=== PATIENT | male | born 1970 | race Caucasian/White ===

== ENCOUNTER 2016-08-06 17:46 | Inpatient (IN) | payer OTHER ==
[~2016-08-06] VITALS: Ht 188 cm; Wt 142.1 kg
[~2016-08-06 17:46] MED LIST: ADULT LOW DOSE81 M1 PO; ALEVE220 M2 PO; ATACAND32 MG PO; CIPRO500 MG PO; CRESTOR20 MG PO; DAILY VITAMIN1 EAC8 PO; FISH OIL500 MG PO; GLIMEPIRIDE4 MG PO; METFORMIN HCL1000 MG PO; ONE TOUCH VERI1 EACH MC; PRILOSEC40 MG PO; TAMIFLU75 MG PO; VICTOZA 2-0.6 MG/0.1 SC
[2016-08-06 18:25] LABS: HEMATOCRIT 48.5 % (38.0-50.0); MCH 29.5 PG (29.0-34.0); MCHC 35.1 G/DL (30.0-36.0); MCV 84.2 FL (86-99); MEAN PLAT.VOLUME 10.1 uM^3 (9.0-12.4); PLATELET COUNT 273 K/uL (156-360); RBC DIS.WIDTH-CV 12.6 % (11.8-14.6); RBC DIS.WIDTH-SD 38.5 % (39-53); RED BLOOD COUNT 5.76 M/uL (4.00-5.50); WHITE BLOOD COUNT 11.2 K/uL (4.1-10.2)
[2016-08-06 18:35] LABS: CHLORIDE 103 mEq/L (99-109); SODIUM 140 mEq/L (136-147)
[2016-08-06 18:37] LABS: GLUCOSE 156 mg/dL (70-99)
[2016-08-06 18:38] LABS: ANION GAP 11 MEQ/L (2-14)
[2016-08-06 18:41] LABS: ALKALINE PHOSPHATASE 42 IU/L (3-129); GFR ESTIMATE (CALCULATED) 35 mL/min/
[2016-08-06 18:42] LABS: UREA NITROGEN (BUN) 17 mg/dL (9-23)
[2016-08-06 18:44] LABS: LIPASE 34 U/L (1.0-51.0)
[2016-08-06 19:10] LABS: ADD MIUA? NO; BILIRUBIN NEGATIVE; BLOOD NEGATIVE; COLOR YELLOW ((YELLOW)); GLUCOSE (STRIP) NEGATIVE; KETONES NEGATIVE; LEUKOCYTES NEGATIVE; NITRITE NEGATIVE; PROTEIN (STRIP) NEGATIVE; SPECIFIC GRAVITY 1.014 (1.000-1.030); UCUL ADDED? NO; UROBILINOGEN 0.2 MG/DL (0.2-1.0)
[2016-08-06] MEDS ORDERED: CHLORDIAZEPOXI1 EACH PO (23:18)
[2016-08-06] MEDS ORDERED: TRULICITY1.5 MG/0.5 SC (23:19)
[2016-08-06] MEDS ORDERED: LEVEMIR FL100 UNIT/1 SC (23:19)
[2016-08-06] MEDS ORDERED: MOMETASONE FURO45 GM TP (23:21)
[2016-08-06 23:33] LABS: POINT-OF-CARE METER ID UU14100415
[2016-08-07 03:04] VITALS: BP 139/80
[2016-08-07 06:35] LABS: EOSINOPHIL (%) 0.4 % (0-5); HEMATOCRIT 43.3 % (38.0-50.0); IMMATURE GRANULOCYTE (%) 0.4 % (0.0-0.7); INSTRUMENT ABS NEUTROPHIL CT 8.5 K/uL; LYMPHOCYTE COUNT 1.7 K/uL (1.0-2.8); MCH 29.2 PG (29.0-34.0); MCHC 33.9 G/DL (30.0-36.0); MCV 85.9 FL (86-99); MEAN PLAT.VOLUME 9.9 uM^3 (9.0-12.4); MONOCYTE (%) 9.3 % (3-12); MONOCYTE COUNT 1.1 K/uL (0-0.8); NEUTROPHIL (%) 74.3 % (45-76); NEUTROPHIL COUNT 8.5 K/uL (1.8-6.4); PLATELET COUNT 240 K/uL (156-360); RED BLOOD COUNT 5.04 M/uL (4.00-5.50); WHITE BLOOD COUNT 11.4 K/uL (4.1-10.2)
[2016-08-07 07:00] LABS: ANION GAP 10 MEQ/L (2-14); CHLORIDE 102 MEQ/L (99-109); GFR ESTIMATE (CALCULATED) 39 mL/min/; GLUCOSE 145 mg/dL (70-99); POTASSIUM 4.8 MEQ/L (3.7-5.4); SAMPLE HEMOLYSIS CHECK 0; SAMPLE ICTERIC CHECK 0; SAMPLE LIPEMIA CHECK 0; SODIUM 142 MEQ/L (136-147); UREA NITROGEN (BUN) 17 mg/dL (9-23)
[2016-08-07 08:11] VITALS: BP 143/88
[2016-08-07 08:31] LABS: POINT-OF-CARE METER ID UU14149398
[2016-08-07 10:26] LABS: POINT-OF-CARE METER ID UU13113675
[2016-08-07 11:45] VITALS: BP 120/70
[2016-08-07 13:34] LABS: POINT-OF-CARE METER ID UU14149398
[2016-08-07] MEDS ORDERED: KEFLEX500 MG PO (14:52)
[2016-08-07] MEDS ORDERED: OXAYDO5 MG PO (14:54)
[2016-08-07] MEDS ORDERED: TYLENOL EXTRA500 MG PO (14:58)
[2016-08-07 15:14] VITALS: BP 132/97
== END 2016-08-07 16:25 | disposition home or self-care (01) | DRG 690 ==
LOC: EME 17:46 → EDOF 08-07 01:13 → 4SOUTH 08-07 02:35
PROVIDERS: Hospitalist; Physician Assistant; Student in an Organized Health Care Education/Training Program
PROC: BT1DYZZ Fluoroscopy of Right Kidney, Ureter and Bladder using Other Contrast (ICD-10-PCS; principal; 2016-08-07)
PROC: 0T768DZ Dilation of Right Ureter with Intraluminal Device, Via Natural or Artificial Opening Endoscopic (ICD-10-PCS; principal; 2016-08-07)
DX: N13.6 Pyonephrosis (principal); N17.9 Acute kidney failure, unspecified; K76.0 Fatty (change of) liver, not elsewhere classified; R16.2 Hepatomegaly with splenomegaly, not elsewhere classified; E11.9 Type 2 diabetes mellitus without complications; E78.5 Hyperlipidemia, unspecified; E66.01 Morbid (severe) obesity due to excess calories; Z68.41 Body mass index [BMI] 40.0-44.9, adult; I10 Essential (primary) hypertension; G47.30 Sleep apnea, unspecified; K58.9 Irritable bowel syndrome, unspecified
CPT/HCPCS: 74176; 80048; 80053; 81003; 82948; 83690; 85025; 85027; 87040; 87086; 99281; 99285; C1876; J0330; J0696; J1170; J1815; J1885; J2250; J2405; J2765; J3010; J7030; J7050

== ENCOUNTER → 2016-08-09 | Outpatient (CLI) | payer OTHER ==
[~2016-08-09] MED LIST changes: +CHLORDIAZEPOXI1 EACH PO; +KEFLEX500 MG PO; +LEVEMIR FL100 UNIT/1 SC; +MOMETASONE FURO45 GM TP; +OXAYDO5 MG PO; +TRULICITY1.5 MG/0.5 SC; +TYLENOL EXTRA500 MG PO
== END | disposition home or self-care (01) ==
LOC: CDC 09:34
DX: R94.31 Abnormal electrocardiogram [ECG] [EKG] (principal)
CPT/HCPCS: 93000

== ENCOUNTER → 2016-10-10 | Outpatient (CLI) | payer OTHER | END | disposition home or self-care (01) | LOC: CDC 09:19 | DX: M47.12 Other spondylosis with myelopathy, cervical region (principal); M48.02 Spinal stenosis, cervical region; M50.20 Other cervical disc displacement, unspecified cervical region; R94.31 Abnormal electrocardiogram [ECG] [EKG] | CPT/HCPCS: 93000 ==

== ENCOUNTER → 2017-09-26 | Outpatient (CLI) | payer OTHER | END | disposition home or self-care (01) | LOC: NUC 06:42 | DX: K31.84 Gastroparesis (principal); R11.0 Nausea | CPT/HCPCS: 78264; A9541 ==